=== PATIENT | female | born 1990 | race Caucasian/White ===

== ENCOUNTER 2016-11-23 22:19 | Emergency (ER) | payer MEDICAID ==
[2016-11-23] MEDS ORDERED: CLINDAMYCIN HCL 150 MG CAPSULE PO ONE (22:49)
--- NOTE | 2016-11-23 22:54 | ER NURSING DOCUMENTATION ---
Nurse's Notes [facility] Name:Amy Barrientos Age:26 yrs Sex:Female :1990 Arrival Date:11/23/2016 Time:22:19 Bed1 Private MD:Barby Gillespie Diagnosis:Tooth Pain-: Solomons Tooth;MRSA-Methicillin Suscept Staph Aureus Presentation: 11/23 22:25 Presenting complaint: Patient states: " I have staff and an abscess on my belly that's mk2 getting better and one on my face that hurts, and a tooth infection that's killing me and an adrenal insufficiency that makes me light headed. Transition of care: Home. Care prior to arrival: None. 22:25 Method Of Arrival: Walk In [facility] 22:25 Acuity: DOROTHY 3 2 Triage Assessment: 22:36 General: Appears in no apparent distress, Behavior is cooperative, pleasant. Pain: mk2 Complains of pain in Pt has a lower left toothache and a skin abscess on her left temporal area and abdomen area. No fluid leaking. Cardiovascular: No deficits noted. Respiratory: Breath sounds are clear bilaterally. Musculoskeletal:. Historical: - Allergies: PENICILLINS; Keflex; Augmentin; Levaquin; Amoxicillin; - PMHx: LUPUS; sjogren; raynauds; FIBROMYALGIA; adrenal insufficiency; - PSHx: discectomy L5 S1; - Tetanus: < 10 years. - Ebola Screening: : Patient negative for fever greater than or equal to 101.5 degrees Fahrenheit, and additional compatible Ebola Virus Disease symptoms. Patient denies exposure to infectious person. Patient denies travel to an Ebola-affected area in the 21 days before illness onset. No symptoms or risks identified at this time. . - Immunization history: Flu Vaccine < 1 year. - Social history: Smoking status: Patient states was never smoker of tobacco. Patient uses alcohol occasionally. Patient/guardian denies using street drugs. Screenin:42 Infectious Disease Risk None. Abuse screen: Denies threats or abuse. Nutritional 2 screening: No deficits noted. Assessment: 22:42 See Triage Assessment done by same RN. 2 Vital Signs: 22:40 BP 127 / 64; Pulse 74; Resp 15; Temp 98.3; Pulse Ox 95% on R/A; Weight 103.87 kg; mk2 Height 5 ft. 2 in. (157.48 cm); Pain 5/10; 22:53 BP 122 / 62; Pulse 68; Resp 13; Pulse Ox 96% on R/A; Pain 5/10; mk2 22:40 Body Mass Index 41.88 (103.87 kg, 157.48 cm) [facility] ED Course: 22:20 [facility] 22:20 Barby Gillespie DO is Private Physician. [facility] 22:23 Colin Young MD is Attending Physician. cd 22:25 Milla Nazario, RN is Primary Nurse. 2 22:27 Triage completed. mk2 22:40 Arm band placed on Bed in low position Call Light in Reach Gowned HOB Elevated Side 2 rails up x1. 22:45 Barby Gillespie DO is Referral Physician. cd 22:52 Valuables Remains with patient. Warm blanket given. 2 Administered Medications: 22:43 Drug: Clindamycin 150 mg; Route: PO; 2 22:44 Follow up: Response: No adverse reaction [facility] Outcome: 22:46 Discharge ordered by . cd 22:52 Discharged to home ambulatory. 2 22:52 Condition: improved 22:52 Discharge Assessment: Patient awake, alert and oriented x 3. No cognitive and/or functional deficits noted. Patient verbalized understanding of disposition instructions. 22:52 Discharge instructions given to patient, Instructed on discharge instructions, follow up and referral plans. medication usage, Prescriptions given X 2. 22:53 Patient left the ED. 2 11/24 14:51 Discharge F/U Call: Unable to reach: no answer st Signatures: Graciela Savage RN RN st Daley, Chris, MD MD cd Kruger, Meg, CANDICE RN [facility]
--- NOTE | 2016-11-23 22:54 | ER PHYSICIAN DOCUMENTATION ---
Physician Documentation [facility] Name:Amy Barrientos Age:26 yrs Sex:Female :1990 Arrival Date:11/23/2016 Time:22:19 Bed1 Private MD:Barby Gillespie ED, Chris Disposition: 11/23/16 22:46 Discharged to Home/Self Care. Impression: Tooth Pain - : Rowan Tooth, MRSA-Methicillin Suscept Staph Aureus. - Condition is Good. - Discharge Instructions: DENTAL PAIN, CELLULITIS MRSA suspected or confirmed - MRSA SKIN INFECTION, Suspected or Confirmed. - Prescriptions for Bactrim DS 160- 800 mg Oral Tablet - take 1 tablet by ORAL route every 12 hours for 7 days; 14 tablet. Clindamycin HCl 150 mg Oral Capsule - take 1 capsule by ORAL route every 6 hours for 10 days; 40 capsule. - Medical Reconciliation form form. - Follow up: Barby Gillespie DO; When: 7 - 10 days; Reason: Recheck today's complaints, Continuance of care. - Problem is new. - Symptoms are unchanged. - Notes: Take Antibiotics as directed. Warm packs to abdominal infection. Ibuprofen 400mg by mouth every 6 hours with food for 3 - 4 days. Drink 2 - 3 quarts of water or Gatorade every day. HPI: 11/23 22:20 This 26 yrs old Female presents to ER via Walk In with complaints of skin cd infections and toothache. 22:20 the patient presents with an erythematous area of the abdomen and left pre-auricular cd area. Description: The affected area is small, erythematous, raised. Onset: The symptom(s)/episode began/occurred gradually, 7 day(s) ago, the patient was placed on Bactrim DS and her abdominal infection is getting better. New possible MRSA skin infection near her left ear. no drainage. Only has 3 days left on Bactrim DS. Patient also complains of left sided tooth pain. She saw a Dentist this morning and was diagnosed with pain from a Rowan tooth. She has no swelling, fever or chills. Also complains of occ. weakness and dizziness from her Adrenal Insufficiency. I discussed the adjustment of her Hydrocortisone intake to help this over the next two days.. Historical: - Allergies: PENICILLINS; Keflex; Augmentin; Levaquin; Amoxicillin; - PMHx: LUPUS; sjogren; raynauds; FIBROMYALGIA; adrenal insufficiency; - PSHx: discectomy L5 S1; - Tetanus: < 10 years. - Ebola Screening: : Patient negative for fever greater than or equal to 101.5 degrees Fahrenheit, and additional compatible Ebola Virus Disease symptoms. Patient denies exposure to infectious person. Patient denies travel to an Ebola-affected area in the 21 days before illness onset. No symptoms or risks identified at this time. . - Immunization history: Flu Vaccine < 1 year. - Social history: Smoking status: Patient states was never smoker of tobacco. Patient uses alcohol occasionally. Patient/guardian denies using street drugs. ROS: 22:30 Constitutional: Negative for chills, fever. cd 22:30 Skin: Positive for two milan MRSA infection that have not abscessed, Negative for abscesses. 22:30 Endocrine: 22:30 All other systems are negative. Exam: 22:30 Cardiovascular: Regular rate and rhythm with a normal S1 and S2. No gallops, murmurs, cd or rubs. Normal PMI, no JVD. No pulse deficits. Respiratory: Lungs have equal breath sounds bilaterally, clear to auscultation and percussion. No rales, rhonchi or wheezes noted. No increased work of breathing, no retractions or nasal flaring. Abdomen/GI: Soft, non-tender, with normal bowel sounds. No distension or tympany. No guarding or rebound. No evidence of tenderness throughout. Back: No spinal tenderness. No costovertebral tenderness. Full range of motion. MS/ Extremity: Pulses equal, no cyanosis. Neurovascular intact. Full, normal range of motion. 22:30 Neuro: Awake and alert, GCS 15, oriented to person, place, time, and situation. cd Cranial nerves II-XII grossly intact. Motor strength 5/5 in all extremities. Sensory grossly intact. Cerebellar exam normal. Normal gait. 22:30 Constitutional: The patient appears in no acute distress, alert, awake, anxious, obese. 22:30 ENT: Dental exam: normal, no acute changes, dental caries, not appreciated, gum swelling, not appreciated. 22:30 Skin: Appearance: normal except for affected area, small NRSA lesion in right lower abdomen. No signs of abscess formation. Small lesion in front of left ear.. Vital Signs: 22:40 BP 127 / 64; Pulse 74; Resp 15; Temp 98.3; Pulse Ox 95% on R/A; Weight 103.87 kg; mk2 Height 5 ft. 2 in. (157.48 cm); Pain 5/10; 22:53 BP 122 / 62; Pulse 68; Resp 13; Pulse Ox 96% on R/A; Pain 5/10; mk2 22:40 Body Mass Index 41.88 (103.87 kg, 157.48 cm) mk2 MDM: 22:23 Patient medically screened. cd 22:30 Data interpreted: Pulse oximetry:. cd 22:50 Data reviewed: vital signs, nurses notes, old medical records, and as a result, I will cd discharge patient. Counseling: I had a detailed discussion with the patient and/or guardian regarding: the historical points, exam findings, and any diagnostic results supporting the discharge/admit diagnosis, the need for outpatient follow up, for a recheck, with the patient's primary care provider, to return to the emergency department if symptoms worsen or persist or if there are any questions or concerns that arise at home. Dispensed Medications: 22:43 Drug: Clindamycin 150 mg; Route: PO; mk2 22:44 Follow up: Response: No adverse reaction mk2 Signatures: Colin Young MD MD cd Kruger, Meg, RN RN mk2
== END 2016-11-23 22:54 | disposition home or self-care (01) ==
LOC: ER 22:19
DX: K08.89 Other specified disorders of teeth and supporting structures (principal); L98.8 Other specified disorders of the skin and subcutaneous tissue; A49.01 Methicillin susceptible Staphylococcus aureus infection, unspecified site; R42 Dizziness and giddiness; E27.40 Unspecified adrenocortical insufficiency; Z79.899 Other long term (current) drug therapy
CPT/HCPCS: 99283